=== PATIENT | female | born 1950 | race Caucasian/White ===

== ENCOUNTER 2020-06-06 04:11 | Inpatient (IN) | payer OTHER ==
[2020-06-03 09:09] VITALS: BMI 24.5
[2020-06-09] MEDS ORDERED: ceFAZolin SODIUM 1 GM VIAL IVPB ONE (08:30)
[2020-06-09] MEDS ORDERED: VANCOMYCIN 1,000 MG VIAL (RESTRICTED TO ID ONLY) IVPB ONE (09:00)
[2020-06-09] MEDS ORDERED: THROMBIN (BOVINE) 5,000 UNIT VIAL TP ONE (10:56)
[2020-06-09] MEDS ORDERED: oxyCODONE HCL 5 MG TABLET PO PRN (13:23)
[2020-06-09] MEDS ORDERED: ONDANSETRON 4 MG/2 ML VIAL IVPUSH PRN (13:23)
[2020-06-09] MEDS ORDERED: LACTATED RINGERS SOLUTION 1,000 ML IV SCH ×2 (13:30→13:45)
[2020-06-09] MEDS ORDERED: ACETAMINOPHEN 1000 MG/100 ML VIAL (NON FORMULARY) IVPB ONE ×2 (13:32→14:35)
[2020-06-09] MEDS ORDERED: ACETAMINOPHEN INJECTION 100 ML IVPB ONE (14:20)
[2020-06-09] MEDS ORDERED: ceFAZolin SODIUM 1 GM VIAL ONE ×2 (18:01→21:02)
[2020-06-09] MEDS ORDERED: DEXTROSE 5%-WATER - 50 ML IVPB ONE ×2 (18:01→21:03)
[2020-06-09] MEDS: CEFAZOLIN 1 GM in DEXTROSE 5%-WATER - 1 GM/50 ML IVPB IVPB SCH ×2 (18:02→21:07)
[2020-06-09] MEDS: metFORMIN HCL 500 MG TABLET (FP) PO SCH (18:19)
[2020-06-09] MEDS: oxyCODONE HCL 5 MG TABLET PO PRN (18:46)
[2020-06-09] MEDS ORDERED: DEXAMETHASONE SOD PHOSPHATE 10 MG/1 ML VIAL IVPUSH ONE (23:30)
[2020-06-10] MEDS ORDERED: ceFAZolin SODIUM 1 GM VIAL ONE (03:50)
[2020-06-10] MEDS ORDERED: DEXTROSE 5%-WATER - 50 ML IVPB ONE (03:51)
[2020-06-10] MEDS: CEFAZOLIN 1 GM in DEXTROSE 5%-WATER - 1 GM/50 ML IVPB IVPB SCH (03:52)
[2020-06-10] MEDS: metFORMIN HCL 500 MG TABLET (FP) PO SCH (06:44)
[2020-06-10] MEDS ORDERED: glipiZIDE 5 MG TABLET (FP) PO SCH (07:00)
[2020-06-10] MEDS ORDERED: LOSARTAN POTASSIUM 50 MG TABLET PO SCH (10:00)
[2020-06-10] MEDS ORDERED: NIFEdipine E.R 60 MG TABLET PO SCH (10:00)
[2020-06-10] MEDS: oxyCODONE HCL 5 MG TABLET PO PRN (11:44)
[2020-06-10 12:16] LABS: BASO % 0.2 % (0-2.0); HEMATOCRIT 33.3 % (32.4-45.2); HEMOGLOBIN 11.6 GM/dL (10.7-15.3); LYMPH % 9.3 % (8-40); MCH 30.7 pg (25.7-33.7); MCHC 34.8 g/dl (32.0-36.0); MEAN CELL VOLUME 88.3 fl (80-96); MEAN PLT VOLUME 8.6 fl (7.5-11.1); MONO % 6.5 % (3.8-10.2); PLATELET COUNT 251 K/MM3 (134-434); RBC 3.78 M/mm3 (3.60-5.2); RDW 13.4 % (11.6-15.6); WHITE BLOOD COUNT 13.4 K/mm3 (4.0-10.0)
[2020-06-10 12:24] VITALS: TEMP 98.4
[2020-06-10 12:25] VITALS: BP 128/77; PULSE 74
[2020-06-10 12:36] LABS: POTASSIUM 4.3 mmol/L (3.5-5.1)
[2020-06-10 12:39] LABS: ALBUMIN 3.5 g/dl (3.4-5.0); BLOOD UREA NITROGEN 14.6 mg/dL (7-18); CALCIUM 9.3 mg/dL (8.5-10.1); MAGNESIUM 1.8 mg/dL (1.8-2.4)
[2020-06-10 12:42] LABS: CREATININE 0.9 mg/dL (0.55-1.3); PHOSPHOROUS 3.6 mg/dL (2.5-4.9)
[2020-06-10 12:44] LABS: BILIRUBIN,TOTAL 0.2 mg/dL (0.2-1); TOT PROT 6.9 g/dl (6.4-8.2)
== END 2020-06-10 14:42 | disposition home or self-care (01) | DRG 472 ==
LOC: UNDOADMIN 04:11 → J2C 04:11 → UNDOADMIN 06-09 13:22 → J2C 06-09 13:22 → JICU 06-09 16:43
PROVIDERS: ADMIT Orthopaedic Surgery Orthopaedic Surgery of the Spine; ATTEND Orthopaedic Surgery Orthopaedic Surgery of the Spine
PROC: 0RT30ZZ Resection of Cervical Vertebral Disc, Open Approach (ICD-10-PCS; 2020-06-09)
PROC: 0PS304Z Reposition Cervical Vertebra with Internal Fixation Device, Open Approach (ICD-10-PCS; 2020-06-09)
PROC: 4A11X4G Monitoring of Peripheral Nervous Electrical Activity, Intraoperative, External Approach (ICD-10-PCS; 2020-06-09)
PROC: B01BZZZ Fluoroscopy of Spinal Cord (ICD-10-PCS; 2020-06-09)
PROC: 2W62X0Z Traction of Neck using Traction Apparatus (ICD-10-PCS; 2020-06-09)
PROC: 0RG20A0 Fusion of 2 or more Cervical Vertebral Joints with Interbody Fusion Device, Anterior Approach, Anterior Column, Open Approach (ICD-10-PCS; principal; 2020-06-09 08:00)
DX: M48.02 Spinal stenosis, cervical region (principal); M47.12 Other spondylosis with myelopathy, cervical region; M40.292 Other kyphosis, cervical region; M47.22 Other spondylosis with radiculopathy, cervical region; I10 Essential (primary) hypertension; E11.9 Type 2 diabetes mellitus without complications; M06.9 Rheumatoid arthritis, unspecified; Z88.0 Allergy status to penicillin
CPT/HCPCS: 36415; 72050-TC-FY; 76000-TC-FY; 80053; 82962; 83735; 84100; 85025; 86850; 86891; 86900; 86901; 88304-TC; 94010; 94760; 97116-GP; 97162-GP; J0131; J1100

== ENCOUNTER 2022-09-06 12:52 | Day surgery (SDC) | payer OTHER ==
[2022-09-03 15:38] VITALS: BMI 20.8
[~2022-09-06 12:52] MED LIST: BUPIVACAINE HCL/PF 0.5% (5 MG/ML) 30 ML VIAL IJ ONE; BUPIVACAINE LIPOSOME/PF (EXPAREL) 266 MG/20 ML VIAL ONE; DEXAMETHASONE SOD PHOSPHATE 4 MG/1 ML VIAL ONE; GLYCOPYRROLATE 0.2 MG/1 ML VIAL ONE; LACTATED RINGERS SOLUTION 1,000 ML IV SCH; MAG HYDROX/AL HYDROX/SIMETH 30 ML UNIT-DOSE CUP PO PRN; MAGNESIUM HYDROX 2400MG/30ML ORAL SUSPENSION 30 ML CUP PO PRN; MIDAZOLAM HCL 2 MG/2 ML SINGLE DOSE VIAL ONE; NEOSTIGMINE METHYLSULFATE 0.5 MG/1 ML - 10 ML MDV ONE; ONDANSETRON 4 MG/2 ML VIAL IVPUSH PRN; ONDANSETRON 4 MG/2 ML VIAL ONE; PHENYLEPHRINE HCL 10 MG/1 ML SINGLE DOSE VIAL ONE; PROPOFOL 20 ML ONE; ROCURONIUM BROMIDE 50 MG/5 ML SYRINGE ONE; TRANEXAMIC ACID 1000 MG/10 ML VIAL ONE; VANCOMYCIN 1,000 MG VIAL (RESTRICTED TO ID ONLY) ONE; ceFAZolin SODIUM 1 GM VIAL ONE; oxyCODONE HCL 5 MG TABLET PO PRN
[2022-09-06] MEDS ORDERED: LACTATED RINGERS SOLUTION 1,000 ML IV SCH (13:00)
[2022-09-06] MEDS ORDERED: ACETAMINOPHEN INJECTION 100 ML IVPB ONE (13:12)
[2022-09-06] MEDS: ACETAMINOPHEN 1000 MG/100 ML BAG IVPB ONE ×2 (13:15→14:45)
[2022-09-06] MEDS ORDERED: ONDANSETRON 4 MG/2 ML VIAL ONE (13:36)
[2022-09-06] MEDS ORDERED: FENTANYL CITRATE/PF 50 MCG/ML VIAL ONE (13:37)
[2022-09-06] MEDS: metFORMIN HCL 500 MG TABLET (FP) PO SCH (17:00)
[2022-09-06] MEDS: CEFAZOLIN SODIUM 2 GM in DEXTROSE 5%-WATER 100 ML IVPB SCH (18:19)
[2022-09-06] MEDS ORDERED: sitaGLIPtin PHOSPHATE 50 MG TABLET PO SCH (20:00)
[2022-09-06] MEDS ORDERED: NIFEdipine E.R 60 MG TABLET PO SCH (20:00)
[2022-09-06 20:05] VITALS: RESP 18
[2022-09-06] MEDS: ACETAMINOPHEN 500 MG TABLET (FP) PO SCH (21:26)
[2022-09-06] MEDS: SENNOSIDES/DOCUSATE COMBO (SENNA PLUS) TABLET (UD) PO SCH (21:26)
[2022-09-06] MEDS: GABAPENTIN 300 MG CAPSULE PO SCH (21:27)
[2022-09-06 21:32] LABS: HEMATOCRIT 24.5 % (32.4-45.2); HEMOGLOBIN 8.8 G/dL (10.7-15.3); MCH 31.7 pg (25.7-33.7); MCHC 35.9 g/dl (32.0-36.0); MEAN CELL VOLUME 88.1 fl (80-96); MEAN PLT VOLUME 7.4 fl (7.5-11.1); PLATELET COUNT 210.4 10^3/uL (134-434); RBC 2.78 10^6/uL (3.60-5.2); RDW 13.4 % (11.6-15.6); WHITE BLOOD COUNT 8.9 10^3/uL (4.0-10.8)
[2022-09-06] MEDS ORDERED: VANCOMYCIN 1 GRAM (PRE-DOCKED) 1,000 MG/250 ML BAG IVPB ONE (22:00)
[2022-09-07] MEDS: CEFAZOLIN SODIUM 2 GM in DEXTROSE 5%-WATER 100 ML IVPB SCH (03:13)
[2022-09-07] MEDS: ACETAMINOPHEN 500 MG TABLET (FP) PO SCH ×2 (03:13→08:51)
[2022-09-07] MEDS: metFORMIN HCL 500 MG TABLET (FP) PO SCH (06:41)
[2022-09-07 07:55] LABS: HEMATOCRIT 26.2 % (32.4-45.2); HEMOGLOBIN 9.6 G/dL (10.7-15.3); MCH 32.2 pg (25.7-33.7); MCHC 36.7 g/dl (32.0-36.0); MEAN CELL VOLUME 87.8 fl (80-96); MEAN PLT VOLUME 8.1 fl (7.5-11.1); PLATELET COUNT 250.5 10^3/uL (134-434); RBC 2.98 10^6/uL (3.60-5.2); RDW 13.4 % (11.6-15.6); WHITE BLOOD COUNT 8.1 10^3/uL (4.0-10.8)
[2022-09-07 07:56] LABS: CALCIUM 8.8 mg/dl (8.5-10); CREATININE 0.7 mg/dl (0.55-1.3)
[2022-09-07] MEDS ORDERED: ASPIRIN 325 MG TABLET PO SCH (08:00)
[2022-09-07] MEDS: SENNOSIDES/DOCUSATE COMBO (SENNA PLUS) TABLET (UD) PO SCH (09:23)
[2022-09-07] MEDS: GABAPENTIN 300 MG CAPSULE PO SCH (09:23)
[2022-09-07] MEDS ORDERED: MULTIVITAMINS (DAILY MVI) TABLET (FP) PO SCH (10:00)
[2022-09-07] MEDS ORDERED: PANTOPRAZOLE 40 MG TABLET PO SCH (10:00)
[2022-09-07] MEDS ORDERED: LOSARTAN POTASSIUM 50 MG TABLET PO SCH (10:00)
[2022-09-07 13:49] VITALS: BP 115/38; PULSE 75; TEMP 98
== END 2022-09-07 14:14 | disposition home or self-care (01) ==
LOC: SUATTDRO 12:52 → FASUSAT 12:52 → FM/S 12:52 → FASUSAT 09-07 14:14
PROC: 0RRJ00Z Replacement of Right Shoulder Joint with Reverse Ball and Socket Synthetic Substitute, Open Approach (ICD-10-PCS; principal; 2022-09-06 10:15)
DX: M19.011 Primary osteoarthritis, right shoulder (principal); M75.101 Unspecified rotator cuff tear or rupture of right shoulder, not specified as traumatic; M75.21 Bicipital tendinitis, right shoulder
CPT/HCPCS: 23472; C1713; 36415; 73030-TC-RT-FY; 80048; 82962; 85027; 88305-TC; 88311-TC; 94760; C1776; C9803-CS; U0003; U0005